=== PATIENT | female | born 1945 | race Caucasian/White ===

== ENCOUNTER 2020-10-23 10:21 | Outpatient (CLI) | payer MEDICARE, BC | END 2020-10-23 10:22 | disposition home or self-care (01) | LOC: BICRAD 10:21 | PROVIDERS: ATTEND Podiatrist | DX: M79.672 Pain in left foot (principal); S92.412D Displaced fracture of proximal phalanx of left great toe, subsequent encounter for fracture with routine healing; M19.072 Primary osteoarthritis, left ankle and foot; S93.102D Unspecified subluxation of left toe(s), subsequent encounter; Z98.890 Other specified postprocedural states ==